=== PATIENT | male | born 1940 | race Caucasian/White ===

== ENCOUNTER → 2023-05-26 14:13 | Outpatient (CLI) | payer MEDICARE, OTHER, SELFPAY | PROVIDERS: Family Provider Family Medicine; PCP Physician Assistant; Visit Provider Specialist | DX: N40.1 Benign prostatic hyperplasia with lower urinary tract symptoms (principal); R35.1 Nocturia; R31.29 Other microscopic hematuria | CPT/HCPCS: 51798; 81002; 87077; 87086; 87186; 99215 ==

== ENCOUNTER → 2023-08-31 13:47 | Outpatient (CLI) | payer MEDICARE, OTHER, SELFPAY | PROVIDERS: Family Provider Family Medicine; PCP Student in an Organized Health Care Education/Training Program; Visit Provider Specialist | DX: N39.0 Urinary tract infection, site not specified (principal); N40.0 Benign prostatic hyperplasia without lower urinary tract symptoms; R31.29 Other microscopic hematuria; Z87.440 Personal history of urinary (tract) infections; N18.9 Chronic kidney disease, unspecified; Z68.21 Body mass index [BMI] 21.0-21.9, adult | CPT/HCPCS: 51798; 81002; 87077; 87086; 87186; 99215 ==

== ENCOUNTER → 2023-09-15 14:03 | Outpatient (CLI) | payer MEDICARE, OTHER, SELFPAY ==
--- NOTE | 2023-09-15 14:07 | DI.CT.S_ITS ---
PROCEDURE: CT KIDNEY URETER BLADDER (KUB) INDICATIONS: kidney stones TECHNIQUE: Axial sections were acquired from the lung bases to the pubic symphysis. Coronal and sagittal reformats were performed. For radiation dose reduction, the following was used: automated exposure control, adjustment of mA and/or kV according to patient size. COMPARISON: None. FINDINGS: Image quality: Excellent. Lung bases: Calcified left lower lobe nodule. Heart: No significant findings. URINARY: Right Kidney: No stones or hydronephrosis. Right Ureter: No hydroureter. Left Kidney: No stones or hydronephrosis. Left Ureter: No hydroureter. Bladder: Circumferential bladder wall thickening. No stones. ABDOMEN: Liver: Unremarkable. Gallbladder: Cholelithiasis. Biliary ducts: Unremarkable. Pancreas: Unremarkable. Spleen: Punctate calcification, likely sequela of granulomatous disease. Adrenal Glands: Unremarkable. Stomach and Bowel: Stomach, small bowel loops, and colon are unremarkable. Peritoneum: No abnormal intraperitoneal fluid. No free air. Ventral Wall: No hernia. Abdominal Nodes: No enlarged retroperitoneal or mesenteric lymph nodes. Vessels: Aorta and inferior vena cava are normal in size. PELVIS: Pelvic Organs: Prostatomegaly. Pelvic Nodes: Unremarkable. Miscellaneous: No inguinal hernias are seen. Bones: No acute or suspicious osseous abnormality. IMPRESSION: No nephrolithiasis or hydronephrosis. Cholelithiasis without CT evidence of acute cholecystitis. Circumferential bladder wall thickening greater extent than expected for degree of distension, possibly related to chronic bladder outlet obstruction secondary to prostatomegaly. Dictated by: Guerline Guy M.D. on 09/15/2023 at 23:52 Approved by: Guerline Guy M.D. on 09/16/2023 at 0:00
== END ==
PROVIDERS: Family Provider Family Medicine; PCP Student in an Organized Health Care Education/Training Program; Referring Provider Specialist; Visit Provider Specialist
DX: N18.9 Chronic kidney disease, unspecified (principal); R31.9 Hematuria, unspecified; K80.20 Calculus of gallbladder without cholecystitis without obstruction
CPT/HCPCS: 74176

== ENCOUNTER → 2023-11-01 10:58 | Outpatient (CLI) | payer MEDICARE, OTHER, SELFPAY ==
[2023-11-01 20:14] LABS: Appearance Urine UA SL CLOUDY; Bilirubin Urine UA NEGATIVE (NEGATIVE); Color Urine UA YELLOW; Glucose Urine UA 3+ g/dL (Negative); Ketones Urine UA NEGATIVE (NEGATIVE); Leukocyte Esterase Urine UA 2+ (NEGATIVE); Nitrite Urine UA POSITIVE (Negative); Occult Blood Urine UA 3+ (Negative); Protein Urine UA 1+ (Negative); Urobilinogen Urine UA 0.2 E.U./dL (0.2)
[2023-11-01 20:38] LABS: Add Manual Diff / Slide Review NO; Basophils Absolute Auto 100 /uL (0-100); Basophils Percent Auto 0.9 % (0-2); Eosinophils Absolute Auto 200 /uL (0-450); Eosinophils Percent Auto 2.9 % (2-4); Hemoglobin 12.5 g/dL (13.5-17.5); Lymphocytes Absolute Auto 1400 /uL (1100-4500); Lymphocytes Percent Auto 21.5 % (25-40); Mean Corpuscular HGB Conc 32.9 % (30-36); Mean Corpuscular Hemoglobin 30.6 PG (26-34); Mean Corpuscular Volume 92.9 fL (80-100); Monocytes Absolute Auto 600 /uL (0-900); Monocytes Percent Auto 8.6 % (3-14); Neutrophils Absolute Auto 4400 /uL (1500-7000); Neutrophils Percent Auto 66.1 % (50-75); Platelet Count 164 X10^3/uL (150-400); Red Cell Distribution Width 14.1 % (11.6-14.8); White Blood Cell Count 6.7 X10^3/uL (4.5-11.0)
[2023-11-01 20:39] LABS: Albumin 4.2 g/dL (3.5-5.0); BUN Creatinine Ratio 27.3 (6-22); Blood Urea Nitrogen 62 mg/dL (9-20); Calcium 9.8 mg/dL (8.4-10.2); Carbon Dioxide 19 mmol/L (22-32); Chloride 108 mmol/L (98-107); Estimated Glomerular Filt Rate 28 mL/min (>60); Glucose 361 mg/dL (80-110); HEMOLYSIS < 15 (0-50); Phosphorous 4.7 mg/dL (2.3-3.7); Sodium 136 mmol/L (137-145)
[2023-11-01 20:50] LABS: Bacteria Urine Many (>30); Culture Indicated Urine Specimen Cultured; RBC Urine 10-30/HPF (0-5/HPF); Squamous Epithelial Cell Urine 1-5 /HPF (0-5/HPF); WBC Urine 30-100/HPF (0-5/HPF)
[2023-11-01 21:01] LABS: Potassium 5.9 mmol/L (3.4-5.1)
[2023-11-04 14:37] LABS: Calcium 9.5 mg/dL (8.6-10.2); Parathyroid Hormone, Intact 73 pg/mL (15-65)
[2023-11-08 20:10] LABS: 25 hydroxy Vitamin D 2 <1.0 ng/mL (.); 25 hydroxy Vitamin D3 48 ng/mL (.)
== END ==
PROVIDERS: Family Provider Family Medicine; PCP Student in an Organized Health Care Education/Training Program; Visit Provider Internal Medicine Nephrology
DX: N18.4 Chronic kidney disease, stage 4 (severe); E55.9 Vitamin D deficiency, unspecified; R94.6 Abnormal results of thyroid function studies
CPT/HCPCS: 80069; 81001; 82306; 82310; 83970; 85025; 87077; 87086; 87186

== ENCOUNTER → 2023-11-17 11:46 | Outpatient (CLI) | payer MEDICARE, OTHER, SELFPAY | PROVIDERS: Family Provider Family Medicine; PCP Student in an Organized Health Care Education/Training Program; Visit Provider Specialist | DX: N39.0 Urinary tract infection, site not specified (principal); N40.0 Benign prostatic hyperplasia without lower urinary tract symptoms; R31.9 Hematuria, unspecified; Z87.440 Personal history of urinary (tract) infections | CPT/HCPCS: 51798; 81002; 87077; 87086; 87186; 99215 ==

== ENCOUNTER → 2023-11-30 11:45 | Outpatient (CLI) | payer MEDICARE, OTHER, SELFPAY ==
--- NOTE | 2023-11-30 11:46 | DI.MRI.S_ITS ---
PROCEDURE: MR PELVIC PROSTATE PROTOCOL INDICATIONS: Recurrent UTI, HX of TURP TECHNIQUE: Coronal HASTE, axial T1 FSE with fat saturation, 3-plane nonbreath-hold T2 FSE. After the administration of contrast, dynamic axial, delayed axial and coronal VIBE or 2-D FLASH with fat saturation through the pelvis. Diffusion weighted imaging and ADC was performed. COMPARISON: [facility], CT, CT KIDNEY URETER BLADDER (KUB), 09/15/2023, 14:30. FINDINGS: Image quality: Diffusion weighted and dynamic contrast enhanced images are diagnostic. Prostate: Prostate measures 5.6 x 4 x 4.2 cm. Estimated volume is 49 cc. Prior TURP defect. Transitional zone heterogenous nodules are present, either well encapsulated or mostly encapsulated, compatible with PI-RADS 1 or 2 likely BPH nodules. Mildly T2 hypointense heterogenous striated appearance of the peripheral zone is commonly seen with current or prior prostatitis, PI-RADS 2. These findings can obscure small cancers. Some BPH nodules are seen to be extruded to the peripheral zone. No PI-RADS 3, 4, or 5 lesion. Seminal vesicles are clear. Genitourinary system: Markedly trabeculated bladder with diverticula likely sequelae of chronic obstruction. Bowel and peritoneum: Significant rectal gas partially cars is artifact on diffusion-weighted images. No bowel obstruction. No pathologic ascites. Nodes and vessels: No pathologic lymph nodes by size criteria No aneurysmal vessel identified Soft tissues: Unremarkable Bones: Bursal and synovial enhancement likely related to degenerative changes. Heterogeneous marrow signal, for example in the right posterior iliac bone, indeterminate. IMPRESSION: PI-RADS 2: Sequelae of prostatitis and BPH. Prostatomegaly. Prior TURP and sequelae of chronic bladder outlet obstruction. Consider continued PSA surveillance and repeat MRI if indicated. Other findings as above. Dictated by: Yasmani Sherman M.D. on 11/30/2023 at 13:44 Approved by: Yasmani Sherman M.D. on 11/30/2023 at 13:52
== END ==
PROVIDERS: Family Provider Family Medicine; PCP Student in an Organized Health Care Education/Training Program; Referring Provider Specialist; Visit Provider Specialist
DX: N40.0 Benign prostatic hyperplasia without lower urinary tract symptoms (principal); N32.3 Diverticulum of bladder; Z87.440 Personal history of urinary (tract) infections; Z98.890 Other specified postprocedural states; Z90.79 Acquired absence of other genital organ(s)
CPT/HCPCS: 72197

== ENCOUNTER → 2024-02-09 14:30 | Outpatient (CLI) | payer MEDICARE, OTHER, SELFPAY ==
[2024-02-09 19:38] LABS: Add Manual Diff / Slide Review NO; Basophils Absolute Auto 100 /uL (0-100); Basophils Percent Auto 1.2 % (0-2); Eosinophils Absolute Auto 200 /uL (0-450); Eosinophils Percent Auto 3.9 % (2-4); Hematocrit 37.8 % (41-53); Hemoglobin 12.5 g/dL (13.5-17.5); Lymphocytes Absolute Auto 1400 /uL (1100-4500); Lymphocytes Percent Auto 28.2 % (25-40); Mean Corpuscular HGB Conc 33.1 % (30-36); Mean Corpuscular Volume 93.5 fL (80-100); Monocytes Absolute Auto 500 /uL (0-900); Monocytes Percent Auto 10.4 % (3-14); Neutrophils Absolute Auto 2800 /uL (1500-7000); Neutrophils Percent Auto 56.3 % (50-75); Platelet Count 149 X10^3/uL (150-400); Red Blood Cell Count 4.04 X10^6/uL (4.5-5.9)
[2024-02-09 20:16] LABS: Appearance Urine UA CLEAR; Bilirubin Urine UA NEGATIVE (NEGATIVE); Color Urine UA YELLOW; Glucose Urine UA 3+ g/dL (Negative); Ketones Urine UA NEGATIVE (NEGATIVE); Leukocyte Esterase Urine UA NEGATIVE (NEGATIVE); Nitrite Urine UA NEGATIVE (Negative); Occult Blood Urine UA TRACE-INTACT (Negative); Protein Urine UA 1+ (Negative); Urobilinogen Urine UA 0.2 E.U./dL (0.2)
[2024-02-09 20:19] LABS: Alanine Aminotransferase 22 IU/L (<50); Albumin 4.1 g/dL (3.5-5.0); Albumin Globulin Ratio 1.5 (1.0-2.8); Alkaline Phosphatase 54 U/L (38-126); Aspartate Aminotransferase 22 IU/L (17-59); BUN Creatinine Ratio 20.6 (6-22); Bilirubin Total 0.6 mg/dL (0.2-1.3); Blood Urea Nitrogen 42 mg/dL (9-20); Calcium 9.9 mg/dL (8.4-10.2); Carbon Dioxide 23 mmol/L (22-32); Chloride 112 mmol/L (98-107); Estimated Glomerular Filt Rate 31 mL/min (>60); Globulin 2.8 g/dL (1.7-4.1); Glucose 290 mg/dL (80-110); HEMOLYSIS < 15 (0-50); Sodium 140 mmol/L (137-145); Total Protein 6.9 g/dL (6.3-8.2)
[2024-02-09 20:32] LABS: Vitamin D 25 Hydroxy (D3) 50.6 ng/mL (30.0-100.0)
[2024-02-09 20:41] LABS: Potassium 5.4 mmol/L (3.4-5.1)
[2024-02-09 21:17] LABS: Creatinine Urine Random 72.8 mg/dL; Protein (Total) Urine Random 58 mg/dL (0-12); Protein Creatinine Ratio Urine 0.79 GRAM/24H
[2024-02-09 21:20] LABS: Bacteria Urine None Seen; Squamous Epithelial Cell Urine 0-1 /HPF (0-5/HPF); Transitional Epi Cells Urine 0-1/HPF (0-5/HPF); Urine Volume 10mL (spun); WBC Urine 0-1/HPF (0-5/HPF)
[2024-02-09 21:21] LABS: Culture Indicated Urine Cult Not Indicated; Hyaline Casts Urine 0-1/LPF; RBC Urine 10-30/HPF (0-5/HPF)
[2024-02-09 21:44] LABS: Microalbumi Creatinin Ratio Ur 376.3 ug/mg CR (<30); Microalbumin Urine Random 27.4 mg/dL (0-1.6)
[2024-02-15 03:35] LABS: Calcium 9.4 mg/dL (8.6-10.2); Parathyroid Hormone, Intact 99 pg/mL (15-65)
== END ==
PROVIDERS: Family Provider Family Medicine; PCP Student in an Organized Health Care Education/Training Program; Visit Provider Internal Medicine Nephrology
DX: N18.4 Chronic kidney disease, stage 4 (severe) (principal)
CPT/HCPCS: 80053; 81001; 82043; 82306; 82310; 82570; 83970; 84156; 85025

== ENCOUNTER → 2024-06-12 09:58 | Outpatient (CLI) | payer MEDICARE, OTHER, SELFPAY ==
[2024-06-12 21:05] LABS: Add Manual Diff / Slide Review NO; Basophils Absolute Auto 100 /uL (0-100); Basophils Percent Auto 1.2 % (0-2); Eosinophils Absolute Auto 300 /uL (0-450); Hematocrit 37.5 % (41-53); Hemoglobin 12.6 g/dL (13.5-17.5); Lymphocytes Absolute Auto 1700 /uL (1100-4500); Lymphocytes Percent Auto 32.5 % (25-40); Mean Corpuscular HGB Conc 33.5 % (30-36); Mean Corpuscular Hemoglobin 31.8 PG (26-34); Mean Corpuscular Volume 94.9 fL (80-100); Monocytes Absolute Auto 500 /uL (0-900); Monocytes Percent Auto 10.1 % (3-14); Neutrophils Absolute Auto 2800 /uL (1500-7000); Neutrophils Percent Auto 51.2 % (50-75); Platelet Count 168 X10^3/uL (150-400); Red Blood Cell Count 3.95 X10^6/uL (4.5-5.9); Red Cell Distribution Width 13.4 % (11.6-14.8); White Blood Cell Count 5.4 X10^3/uL (4.5-11.0)
[2024-06-12 21:08] LABS: Magnesium 2.2 mg/dL (1.6-2.3); Phosphorous 3.6 mg/dL (2.3-3.7)
[2024-06-12 21:17] LABS: Alanine Aminotransferase 18 IU/L (<50); Albumin 4.3 g/dL (3.5-5.0); Albumin Globulin Ratio 1.4 (1.0-2.8); Alkaline Phosphatase 62 U/L (38-126); Aspartate Aminotransferase 23 IU/L (17-59); BUN Creatinine Ratio 19.5 (6-22); Bilirubin Total 0.7 mg/dL (0.2-1.3); Blood Urea Nitrogen 41 mg/dL (9-20); Calcium 9.9 mg/dL (8.4-10.2); Carbon Dioxide 19 mmol/L (22-32); Chloride 115 mmol/L (98-107); Cholesterol 139 mg/dL (140-199); Estimated Glomerular Filt Rate 30 mL/min (>60); Glucose 155 mg/dL (80-110); HDL Cholesterol 47 mg/dL (40-60); HEMOLYSIS < 15 (0-50); LDL Cholesterol Calculated 71 mg/dL (<100); Potassium 5.4 mmol/L (3.4-5.1); Sodium 140 mmol/L (137-145); Total Protein 7.3 g/dL (6.3-8.2); Triglycerides 107 mg/dL (35-150)
[2024-06-12 21:25] LABS: Appearance Urine UA CLEAR; Bilirubin Urine UA NEGATIVE (NEGATIVE); Color Urine UA YELLOW; Glucose Urine UA TRACE g/dL (Negative); Ketones Urine UA NEGATIVE (NEGATIVE); Leukocyte Esterase Urine UA NEGATIVE (NEGATIVE); Nitrite Urine UA NEGATIVE (Negative); Occult Blood Urine UA TRACE-INTACT (Negative); Protein Urine UA 1+ (Negative); Specific Gravity Urine UA 1.025 (1.000-1.035); Urobilinogen Urine UA 0.2 E.U./dL (0.2)
[2024-06-12 21:31] LABS: RBC Urine 0-1/HPF (0-5/HPF); Urine Volume 10mL (spun)
[2024-06-12 21:32] LABS: Bacteria Urine None Seen; Culture Indicated Urine Cult Not Indicated; Squamous Epithelial Cell Urine None Seen (0-5/HPF); WBC Urine None Seen (0-5/HPF)
[2024-06-12 21:40] LABS: TSH w/ Reflex to FT4 5.36 uIU/mL (0.47-4.68)
[2024-06-12 22:26] LABS: Hemoglobin A1C% w Est Avg Glu 8.9 % (4.0-6.0)
[2024-06-12 22:43] LABS: Free T4, Direct Thyroxine 1.62 ng/dL (0.78-2.19)
[2024-06-12 23:09] LABS: Microalbumin Urine Random 23.5 mg/dL (0-1.6)
== END ==
PROVIDERS: Internal Medicine Nephrology; Family Provider Family Medicine; PCP Student in an Organized Health Care Education/Training Program; Referring Provider Student in an Organized Health Care Education/Training Program; Visit Provider Student in an Organized Health Care Education/Training Program
DX: E07.9 Disorder of thyroid, unspecified (principal); E11.9 Type 2 diabetes mellitus without complications; N18.4 Chronic kidney disease, stage 4 (severe); N40.1 Benign prostatic hyperplasia with lower urinary tract symptoms; R39.14 Feeling of incomplete bladder emptying; N25.81 Secondary hyperparathyroidism of renal origin; D63.1 Anemia in chronic kidney disease
CPT/HCPCS: 80053; 80061; 81001; 82043; 82570; 83036; 83735; 84100; 84153; 84154; 84439; 84443; 85025